=== PATIENT | female | born 1935 | race Caucasian/White ===

== ENCOUNTER 2018-11-19 05:28 | Emergency (ER) | payer MEDICARE ==
[~2018-11-19] VITALS: Ht 170.1 cm; Wt 62.1 kg
--- NOTE | ~2018-11-19 | EKG ---
[place], [place] ELECTROCARDIOGRAM REPORT NAME: CAYDEN GEORGE UNIT #: [id number] ROOM: DOCTOR: EPIPHANY DRAFT REPORT BIRTHDATE: [birth year] [facility] Test Date: 2018-11-19 Test Time: 05:35:27 Pat Name: CAYDEN GEORGE Department: Room: Gender: F Human Resources Administrator: : [id number] Requested By: DON DINH Order Number: [id number] Reading MD: Rudy Gtz MD Measurements Intervals [place] Rate: 92 P: 76 IN: 269 QRS: 87 QRSD: 112 T: 17 QT: 343 QTc: 425 Interpretive Statements Sinus rhythm Prolonged IN interval Anteroseptal infarct, old Electronically Signed On 11-22-2018 12:03:41 PDT by Rudy Gtz MD CM:EKGRPT:ELECTROCARDIOGRAM REPORT [id number] DON DINH MD EPIPHANY DRAFT REPORT DON DINH MD
[2018-11-19 06:10] LABS: BASO % 0.1 % (0.0-1.0); EOS # 0.2 10*3/uL (0.0-0.4); HEMATOCRIT 36.5 % (37.0-47.0); HEMOGLOBIN 11.4 g/dl (12.0-16.0); LYMPH # 0.5 10*3/uL (1.3-4.4); MEAN CELL VOLUME 97.3 fl (81.0-99.0); MEAN CORPUSCULAR HGB 30.4 pg (27.0-31.0); MEAN CORPUSCULAR HGB CONC 31.2 g/dl (33.0-37.0); MEAN PLATELET VOLUME 8.9 fl (9.6-12.3); MONO % 6.9 % (3.0-9.0); NEUT # 13.1 10*3/uL (2.3-7.9); NEUT % 88.1 % (47.0-73.0); PLATELET COUNT AUTOMATED 226 10*3/uL (130-400); RED BLOOD COUNT 3.75 10*6/uL (4.10-5.10); RED CELL DISTRI WIDTH 14.9 % (0-14.5); WHITE BLOOD COUNT 14.9 10*3/uL (4.8-10.8)
[2018-11-19 06:15] LABS: ALBUMIN 2.6 gm/dl (3.1-4.5); ALKALINE PHOSPHATASE 99 U/L (45-117); BUN 22 mg/dl (7-24); CHLORIDE 99 mmol/L (98-107); CREATININE 1.13 mg/dL (0.55-1.02); LIPASE 88 U/L (73-393); SGOT/AST 15 IU/L (3-35); SGPT/ALT 21 U/L (12-78); SODIUM 134 mmol/L (136-145); TOTAL PROTEIN 5.9 gm/dL (6.4-8.2)
[2018-11-19 06:16] LABS: ACT PARTIAL THROMBO TIME 28.2 SECONDS (20.0-32.1); INTERNATIONAL NORM RATIO 1.2 (2.0-3.5)
[2018-11-19 06:20] LABS: TROPONIN I < 0.015 ng/ml (<0.045)
[2018-11-19 07:28] LABS: BILIRUBIN 1+ (NEGATIVE); BLOOD NEGATIVE (NEGATIVE); CLARITY SL CLOUDY (CLEAR); COLOR YELLOW (YELLOW); GLUCOSE NEGATIVE (NEGATIVE); KETONE TRACE (NEGATIVE); LEUKO ESTERASE 1+ (NEGATIVE); NITRITE NEGATIVE (NEGATIVE); PH 5.5 (5.0-9.0); SPECIFIC GRAVITY 1.025 (1.005-1.030)
[2018-11-19 07:53] LABS: BACTERIA 3+; EPITHELIAL CELLS 15-20; WBC TNTC wbc/hpf (0-5)
== END 2018-11-19 08:54 | disposition short-term general hospital (02) ==
LOC: ED 05:28
PROVIDERS: Emergency Medicine Emergency Medical Services
DX: J44.1 Chronic obstructive pulmonary disease with (acute) exacerbation (principal); C34.91 Malignant neoplasm of unspecified part of right bronchus or lung; Z88.0 Allergy status to penicillin; Z88.6 Allergy status to analgesic agent